=== PATIENT | female | born 1955 | race Caucasian/White ===

== ENCOUNTER 2017-11-10 15:41 | Emergency (ER) | payer BC ==
[2017-11-10 15:59] VITALS: BP 155/73
--- NOTE | 2017-11-10 16:11 | UC ---
Back Pain HPI - HPI Summary HPI Summary: C/O 3 day history of pain radiating from the left lower back into the left upper leg and groin. No rash. - History of Current Complaint Chief Complaint: UCLowerExtremity Stated Complaint: PAIN LEFT THIGH/GROIN Time Seen by Provider: 11/10/17 16:01 Hx Obtained From: Patient Hx Last Menstrual Period: 1999 ?: No Onset/Duration: Gradual Onset, Lasting Days - 3, Worse Since - onset Pain Intensity: 10 - Allergies/Home Medications Allergies/Adverse Reactions: Allergies Allergy/AdvReac Type Severity Reaction Status Date / Time environmnental Allergy Eyes Uncoded 11/10/17 16:00 Itchy/Swollen/Red/Watery Home Medications: Home Medications Hydrocodone/Acetaminophen [Hydrocodone-Acetamin 10-325 mg] 1 each PO DAILY 11/10 [History Confirmed 11/10/17] celeCOXIB CAP* [Celebrex CAP*] 100 mg PO BID 11/10/17 [History Confirmed ] PMH/Surg Hx/FS Hx/Imm Hx Respiratory History: Asthma GI/ History: Gastroesophageal Reflux - Surgical History Surgical History: Yes Surgery Procedure, Year, and Place: 1999-HYSTERECTOMY - Family History Known Family History: Positive: Hypertension - Social History Occupation: Disabled Lives: With Family Alcohol Use: Occasionally Substance Use Type: None Smoking Status (MU): Former Smoker When Did the Patient Quit Smoking/Using Tobacco: 20 YRS Review of Systems Musculoskeletal: Arthralgia Is Patient Immunocompromised?: No All Other Systems Reviewed And Are Negative: Yes Physical Exam Triage Information Reviewed: Yes Appearance: Well-Appearing, Pain Distress - moderate, Obese Vital Signs: Initial Vital Signs Temp 98.6 F 11/10/17 15:54 Pulse 66 11/10/17 15:54 Resp 18 11/10/17 15:54 BP 155/73 11/10/17 15:54 Pulse Ox 98 11/10/17 15:54 Vital Signs Reviewed: Yes Eyes: Positive: Conjunctiva Inflamed Neck exam: Normal Respiratory: Positive: Lungs clear Cardiovascular: Positive: RRR, No Murmur Musculoskeletal: Positive: ROM Limited @ - lumbar spine and left hip. Neurological: Positive: Other: - hypersensitive to pinprick in the L1,L2 and ? L3 dermatome Skin: Negative: rashes - in the dermatomal distribution. Diagnostics - Radiology No standard instances Xray Interpretation: Positive (See Comments) - DDD With bridging arthritis L1L2 , L2 L3 Radiology Interpretation Completed By: ED Physician Back Pain Course/Dx - Differential Dx/Diagnosis Differential Diagnosis/HQI/PQRI: Arthritis, Cauda Equina Syndrome, Herniated Disc, Strain Provider Diagnoses: Lumbar radiculitis. Lumbar degenerative disc disease Discharge - Sign-Out/Discharge Documenting (check all that apply): Discharge/Admit/Transfer - Discharge Plan Condition: Stable Disposition: HOME Prescriptions: Gabapentin CAP(*) [Neurontin 300 CAP(*)] 300 mg PO TID #90 cap predniSONE TAB* [Deltasone 20 MG TAB*] 20 mg PO DAILY #18 tab Patient Education Materials: Lumbar Disc Herniation (ED), Lumbar Radiculopathy (ED), Prednisone (By mouth), Gabapentin (By mouth) Referrals: Matias Ferris MD [Primary Care Provider] - Additional Instructions: GABAPENTIN: Gabapentin is an anti-seizure medication that is more often used for nerve pain. It helps to stabilize the nerve to stop the pain. Its primary side effect is sedation which will improve over time. Most people will start with only one capsule 1 to 2 hours before bed, but if your pain is more severe you may want to start with one capsule twice a day. If the pain is still an issue after another 1-2days the dose may be increased to a maximum of 1 capsule 3 times a day. Decrease the dose by one capsule a day if there is excessive sedation or it is not working. You can also decrease it to discontinue it if the pain is resolving. If you break out into a rash call your doctor to get valacyclovir for shingles. - Billing Disposition and Condition Condition: STABLE Disposition: Home
--- NOTE | 2017-11-10 17:01 | RAD ---
INDICATION: L1-L2 lumbar radiculopathy. COMPARISON: There are no prior studies available for comparison. TECHNIQUE: 5 views of the lumbar spine were obtained including lateral, oblique, AP and a coned-down lateral view of the lumbar sacral junction. FINDINGS: The vertebra are in normal alignment. No fracture is seen. There is moderate to severe degenerative disc disease at the L1-L2 and L2-L3 levels and mild to moderate degenerative disc disease at L3-L4, L4-L5 and L5-S1 levels. There is facet osteoarthritis which is most prominent at the L3-L4 L4-L5 and L5-S1 levels. IMPRESSION: DEGENERATIVE DISC DISEASE AND FACET OSTEOARTHRITIS DESCRIBED.
== END 2017-11-10 17:10 | disposition home or self-care (01) ==
LOC: UCCORT 15:41
DX: M54.16 Radiculopathy, lumbar region (principal); M51.36 Other intervertebral disc degeneration, lumbar region; Z87.891 Personal history of nicotine dependence
CPT/HCPCS: 72110; 99212; G0463

== ENCOUNTER 2017-11-20 11:37 | Emergency (ER) | payer BC ==
[2017-11-20 12:20] VITALS: BP 143/74
--- NOTE | 2017-11-20 12:43 | UC ---
Respiratory Complaint HPI - HPI Summary HPI Summary: Pt presents with c/o cough, sob, boyd pressure and generalized malaise X 2 days. Pt has albuterol inhaler and used it last night with some improvement. Pt states breathing is "more difficult" in recumbent position. Denies fever or chills, or hx of blood clots. - History of Current Complaint Chief Complaint: UCRespiratory Stated Complaint: CONGESTION Time Seen by Provider: 11/20/17 12:29 Hx Obtained From: Patient Hx Last Menstrual Period: 1999 ?: No Onset/Duration: Gradual Onset, Lasting Days, Still Present Timing: Constant Severity Initially: Mild Severity Currently: Mild Pain Intensity: 5 Character: Cough: Nonproductive Aggravating Factors: Deep Breaths, Recumbent Position Alleviating Factors: Bronchodilator, Upright Position Associated Signs And Symptoms: Positive: Dyspnea, URI Related History: Seasonal Allergies - Risk Factors Pulmonary Embolism Risk Factors: Negative Cardiac Risk Factors: Negative Pseudomonas Risk Factors: Negative Tuberculosis Risk Factors: Negative - Allergies/Home Medications Allergies/Adverse Reactions: Allergies Allergy/AdvReac Type Severity Reaction Status Date / Time environmnental Allergy Eyes Uncoded 11/10/17 16:00 Itchy/Swollen/Red/Watery PMH/Surg Hx/FS Hx/Imm Hx Previously Healthy: Yes Cardiovascular History: Cardiac Disease - Surgical History Surgical History: Yes Surgery Procedure, Year, and Place: 1999-HYSTERECTOMY - Family History Known Family History: Positive: Hypertension - Social History Occupation: Retired Lives: With Family Alcohol Use: Occasionally Substance Use Type: None Smoking Status (MU): Former Smoker Have You Smoked in the Last Year: No When Did the Patient Quit Smoking/Using Tobacco: 20 YRS Review of Systems Constitutional: Fatigue Skin: Negative Eyes: Negative ENT: Negative Respiratory: Shortness Of Breath, Cough Cardiovascular: Chest Pain Gastrointestinal: Negative Genitourinary: Negative Motor: Negative Neurovascular: Negative Musculoskeletal: Negative Neurological: Negative Psychological: Negative Is Patient Immunocompromised?: No All Other Systems Reviewed And Are Negative: Yes Physical Exam Triage Information Reviewed: Yes Appearance: Ill-Appearing, Obese Vital Signs: Initial Vital Signs Temp 97.1 F 11/20/17 12:13 Pulse 66 11/20/17 12:13 Resp 20 11/20/17 12:13 BP 143/74 11/20/17 12:13 Pulse Ox 98 11/20/17 12:13 Vital Signs Reviewed: Yes Eye Exam: Normal ENT: Positive: Nasal congestion Dental Exam: Normal Neck exam: Normal Respiratory Exam: Normal Respiratory: Positive: Normal breath sounds Cardiovascular Exam: Normal Cardiovascular: Positive: RRR Musculoskeletal Exam: Normal Neurological Exam: Normal Psychological Exam: Normal Skin Exam: Normal UC Diagnostic Evaluation - Laboratory O2 Sat by Pulse Oximetry: 98 Respiratory Course/Dx - Differential Dx/Diagnosis Differential Diagnosis/HQI/PQRI: Bronchitis, Pulmonary Embolism, Other - pneumonia Provider Diagnoses: bronchitis Discharge - Sign-Out/Discharge Documenting (check all that apply): Patient Departure - Discharge Plan Condition: Stable Disposition: HOME Prescriptions: Albuterol HFA INHALER* [Ventolin HFA Inhaler*] 2 puff INH Q4H PRN #1 mdi PRN Reason: coughing Azithromycin TAB* [Zithromax TAB (Z-MAXIMUS) 250 mg #6 tabs] 2 tab PO .TODAY, THEN 1 DAILY #1 maximus predniSONE TAB* [Deltasone 10 MG TAB*] 30 mg PO DAILY #6 tab Patient Education Materials: Acute Bronchitis (ED) Referrals: Matias Ferris MD [Primary Care Provider] - If Needed - Billing Disposition and Condition Condition: STABLE Disposition: Home
== END 2017-11-20 12:53 | disposition home or self-care (01) ==
LOC: UCCORT 11:37
DX: J40 Bronchitis, not specified as acute or chronic (principal); Z91.09 Other allergy status, other than to drugs and biological substances; Z87.891 Personal history of nicotine dependence
CPT/HCPCS: 93005; 99212; G0463

== ENCOUNTER 2018-12-12 11:37 | Emergency (ER) | payer BC, OTHER ==
[2018-12-12 12:42] VITALS: BP 147/85
--- NOTE | 2018-12-12 13:13 | UC ---
Shoulder Pain HPI - HPI Summary HPI Summary: Pt presents with sudden onset of left shoulder pain and reduced ROM. Pt states that she went swimming [place] and woke the next morning with left shoulder pain and reduced ROM. Denies injury or trauma while swimming. - History of Current Complaint Chief Complaint: UCPsych Stated Complaint: LEFT SHOULDER PAIN Time Seen by Provider: 12/12/18 12:51 Hx Obtained From: Patient Hx Last Menstrual Period: 1999 ?: No Onset/Duration: Sudden Onset, Still Present Timing: Constant Severity Initially: Mild Severity Currently: Moderate Location Of Pain: Is Discrete @ - left anterior proximal humerus, Radiates To - to left forearm Pain Intensity: 9 Character: Dull, Aching, Stiffness, Burning Aggravating Factor(s): Movement Alleviating Factor(s): Rest Associated Signs And Symptoms: Positive: Weakness Related History: Dominant Hand Right - Risk Factors Non-Orthopedic Risk Factor: Negative DVT Risk Factors: Negative Septic Arthritis Risk Factor: Negative - Allergies/Home Medications Allergies/Adverse Reactions: Allergies Allergy/AdvReac Type Severity Reaction Status Date / Time erythromycin base Allergy yeast Verified 12/12/18 12:32 infection environmnental Allergy Eyes Uncoded 12/12/18 12:31 Itchy/Swollen/Red/Watery Home Medications: Home Medications Acetaminophen [Pain Relief] 1,000 mg PO Q6H PRN 12/12/18 [History Confirmed 01/22] Trolamine Salicylate/Aloe Vera [Aspercreme 10% Cream] 35.4 gm TP SEE INSTRUCTIONS PRN 12/12/18 [History Confirmed 12/12/18] PMH/Surg Hx/FS Hx/Imm Hx Previously Healthy: Yes - Surgical History Surgical History: Yes Surgery Procedure, Year, and Place: 1999-HYSTERECTOMY - Family History Known Family History: Positive: Hypertension - Social History Occupation: Retired Lives: With Family Alcohol Use: Occasionally Substance Use Type: None Smoking Status (MU): Former Smoker Have You Smoked in the Last Year: No When Did the Patient Quit Smoking/Using Tobacco: 20 YRS Review of Systems All Other Systems Reviewed And Are Negative: Yes Constitutional: Positive: Negative Skin: Positive: Negative Eyes: Positive: Negative ENT: Positive: Negative Respiratory: Positive: Negative Cardiovascular: Positive: Negative Gastrointestinal: Positive: Negative Genitourinary: Positive: Negative Motor: Positive: Decreased ROM - left shoulder, Weakness - left shoulder Neurovascular: Positive: Negative Musculoskeletal: Positive: Arthralgia, Decreased ROM, Myalgia Neurological: Positive: Negative Psychological: Positive: Negative Is Patient Immunocompromised?: No Physical Exam Triage Information Reviewed: Yes Appearance: Pain Distress - with left arm movement Vital Signs: Initial Vital Signs Temp 98.3 F 12/12/18 12:36 Pulse 57 12/12/18 12:36 Resp 18 12/12/18 12:36 BP 147/85 12/12/18 12:36 Pulse Ox 98 12/12/18 12:36 Vital Signs Reviewed: Yes Eye Exam: Normal ENT: Positive: Hearing grossly normal Dental Exam: Normal Neck exam: Normal Respiratory Exam: Normal Musculoskeletal: Positive: Strength Limited @ - left shoulder, ROM Limited @ - left shoulder Neurological Exam: Normal Psychological Exam: Normal Skin Exam: Normal Shoulder Course/Dx - Differential Dx/Diagnosis Differential Diagnosis/HQI/PQRI: Bursitis, Sprain, Tendonitis Provider Diagnosis: Left anterior shoulder pain Discharge - Sign-Out/Discharge Documenting (check all that apply): Patient Departure All imaging exams completed and their final reports reviewed: No Studies - Discharge Plan Condition: Stable Disposition: HOME Prescriptions: Cyclobenzaprine TAB* [Flexeril 10 MG TAB*] 10 mg PO Q8H PRN #15 tab PRN Reason: Pain - Mild Patient Education Materials: Shoulder Bursitis (ED), Shoulder Pain (ED) Referrals: Luciano Donahue MD [Medical Doctor] - If Needed Matias Ferris MD [Primary Care Provider] - If Needed - Billing Disposition and Condition Condition: STABLE Disposition: Home
== END 2018-12-12 13:24 | disposition home or self-care (01) ==
LOC: UCCORT 11:37
DX: M25.512 Pain in left shoulder (principal); Z87.891 Personal history of nicotine dependence
CPT/HCPCS: 93005; 99212; G0463

== ENCOUNTER 2019-05-08 14:23 | Emergency (ER) | payer BC, OTHER ==
--- NOTE | 2019-05-08 16:06 | UC ---
FLU HPI - HPI Summary HPI Summary: 63-year-old female presenting with complaint of nasal congestion, chest congestion, and chest pressure 1 week. Denies chest pain. Also notes right ear pain. Denies cough. Denies sore throat. Denies fevers and body aches. Notes chills this morning. Denies decreased appetite and fluid intake. Patient has history of asthma and concern for pneumonia. States she has been using albuterol inhaler more often than usual and is unsure if it provides any relief. Patient has history of recurrent sinusitis. - History of Current Complaint Chief Complaint: UCGeneralIllness Stated Complaint: CONGESTION Hx Obtained From: Patient Hx Last Menstrual Period: 1999 Onset/Duration: Gradual Onset, Lasting Days Pain Intensity: 0 - Allergy/Home Medications Allergies/Adverse Reactions: Allergies Allergy/AdvReac Type Severity Reaction Status Date / Time erythromycin base Allergy yeast Verified 05/08/19 15:45 infection environmnental Allergy Eyes Uncoded 05/08/19 15:45 Itchy/Swollen/Red/Watery Home Medications: Home Medications Acetaminophen [Tylenol Extra Strength] 2 tab PO ONCE 05/08/19 [History Confirmed 05/08/19] Pantoprazole TAB * [Protonix TAB*] 20 mg PO DAILY 05/08/19 [History Confirmed ] guaiFENesin [Mucinex] 1 tab PO ONCE 05/08/19 [History Confirmed 05/08/19] PMH/Surg Hx/FS Hx/Imm Hx Respiratory History: Asthma GI/ History: Gastroesophageal Reflux - Surgical History Surgical History: Yes Surgery Procedure, Year, and Place: 1999-HYSTERECTOMY - Family History Known Family History: Positive: Hypertension - Social History Alcohol Use: Weekly Substance Use Type: None Smoking Status (MU): Former Smoker Have You Smoked in the Last Year: No When Did the Patient Quit Smoking/Using Tobacco: 20 YRS Review of Systems All Other Systems Reviewed And Are Negative: Yes Constitutional: Positive: Chills - this morning. Negative: Fever ENT: Positive: Ear Ache - right, Sinus Congestion. Negative: Sore Throat Respiratory: Positive: Shortness Of Breath, Other - wheezing/chest congestion. Negative: Cough Cardiovascular: Positive: Negative Gastrointestinal: Positive: Negative. Negative: Vomiting, Nausea Musculoskeletal: Positive: Negative Neurological: Positive: Negative Physical Exam Triage Information Reviewed: Yes Appearance: Well-Appearing, No Pain Distress, Well-Nourished Vital Signs: Initial Vital Signs Temp 98 F 05/08/19 15:47 Pulse 75 05/08/19 15:47 Resp 16 05/08/19 15:47 BP 142/89 05/08/19 15:47 Pulse Ox 98 05/08/19 15:47 Vital Signs Reviewed: Yes Eyes: Positive: Conjunctiva Clear ENT: Positive: Hearing grossly normal, Pharynx normal, Nasal congestion, TMs normal, Uvula midline. Negative: Nasal drainage, Tonsillar swelling, Tonsillar exudate, Sinus tenderness Neck exam: Normal Neck: Positive: Supple, Nontender, No Lymphadenopathy Respiratory: Positive: No respiratory distress, No accessory muscle use, Wheezing - diffuse expiratory wheezing. Negative: Crackles, Rhonchi, Stridor Cardiovascular Exam: Normal Cardiovascular: Positive: RRR, No Murmur. Negative: Tachycardia Neurological: Positive: Alert Psychological: Positive: Age Appropriate Behavior Skin Exam: Normal Diagnostics - Radiology chest Radiology Interpretation Completed By: Radiologist Summary of Radiographic Findings: FINDINGS: The heart is within normal limits in size. Mediastinal and hilar contours appear within normal limits. The lungs are hyperinflated and clear. No pleural effusion is seen. IMPRESSION: FINDINGS CONSISTENT WITH COPD, NO EVIDENCE FOR ACUTE DISEASE. Flu Course/Dx - Course Course Of Treatment: Chest x-ray revealed findings consistent with COPD, no evidence of pneumonia. Discussed this with patient and instructed to follow up with primary care provider within the next couple weeks for further evaluation. Provided patient with prednisone and albuterol inhaler for symptomatic relief. Also provided patient with Augmentin for sinusitis treatment. Instructed to follow up with PCP if symptoms persist. Patient voiced understanding and agree with treatment plan. - Differential Dx/Diagnosis Provider Diagnosis: Sinusitis, Acute bronchitis Discharge ED - Sign-Out/Discharge Documenting (check all that apply): Patient Departure All imaging exams completed and their final reports reviewed: Yes - Discharge Plan Condition: Stable Disposition: HOME Prescriptions: Albuterol HFA INHALER* [Ventolin HFA Inhaler*] 2 puff INH Q4H PRN #1 mdi PRN Reason: Sob/Wheezing Amoxicillin/Clavulanate TAB* [Augmentin TAB 875*] 875 mg PO BID #14 tab predniSONE 20 mg TAB [Deltasone 20 MG TAB*] 40 mg PO DAILY #10 tab Patient Education Materials: Sinusitis (ED), Acute Bronchitis (ED) Referrals: Malakar,Matias, MD [Primary Care Provider] - 2 Weeks Additional Instructions: Take Augmentin and prednisone as prescribed. Use your inhaler as needed for shortness of breath/wheezing. Get plenty of rest and fluids. You chest xray findings were read as consistent with COPD. It is recommended that you follow up with your primary care provider within the next couple weeks for further evaluation. Go to the emergency room with any new or worsening symptoms. - Billing Disposition and Condition Condition: STABLE Disposition: Home
[2019-05-08 17:48] VITALS: BP 142/84
== END 2019-05-08 18:06 | disposition home or self-care (01) ==
LOC: UCCORT 14:23
DX: J32.9 Chronic sinusitis, unspecified (principal); J20.9 Acute bronchitis, unspecified; J45.909 Unspecified asthma, uncomplicated; K21.9 Gastro-esophageal reflux disease without esophagitis; Z88.8 Allergy status to other drugs, medicaments and biological substances; Z91.09 Other allergy status, other than to drugs and biological substances; Z79.899 Other long term (current) drug therapy; Z87.891 Personal history of nicotine dependence
CPT/HCPCS: 71046; 99212; G0463

== ENCOUNTER 2020-07-26 06:26 | Observation (INO) ==
[~2020-07-26 06:26] MED LIST: Buffered Lidocaine 1% SYRIN 1 ml INTRADERM ONE; Famotidine IV 10 MG/ML 2 ml VIAL (20 mg) IV ONE; Lactated Ringers 1000 ml BAG 1,000 ML IV SCH; Levalbuterol 0.63MG/3ML NEB UNIT OF USE INH ONE
[2020-07-26] MEDS ORDERED: Levalbuterol 0.63MG/3ML NEB UNIT OF USE INH ONE (06:50)
[2020-07-26] MEDS ORDERED: ceFAZolin 2 GM PREMIX 2 GM/50 ML BAG ONE (06:50)
[2020-07-26] MEDS ORDERED: Famotidine IV 10 MG/ML 2 ml VIAL (20 mg) ONE (06:51)
[2020-07-26] MEDS ORDERED: Propofol 10 MG/ML 20 ML BTL ONE ×3 (06:55→10:16)
[2020-07-26] MEDS ORDERED: Ondansetron 4 mg VIAL 2 MG/ML 2 ml VIAL ONE (06:55)
[2020-07-26] MEDS ORDERED: Phenylephrine IV 10 MG/ML 1 ml VIAL ONE (06:56)
[2020-07-26] MEDS ORDERED: Lidocaine 2% PF 5 ML VIAL ONE ×3 (06:56→08:22)
[2020-07-26] MEDS ORDERED: fentaNYL 100 mcg/2 ml 50 MCG/ML VIAL ONE ×2 (06:59→07:24)
[2020-07-26] MEDS ORDERED: Midazolam 2 mg/2 ml VIAL 1 mg/ml 2 ml VIAL (2 mg) ONE ×2 (06:59→08:20)
[2020-07-26] MEDS ORDERED: Ketamine HCL 50 mg/ml 10 ml VIAL (500 MG) ONE (06:59)
[2020-07-26] MEDS ORDERED: Bupivacaine 0.5% SDV PF 30ML VIAL ONE (07:02)
[2020-07-26] MEDS ORDERED: Ropivacaine 5 MG/ML 20 ML VIAL 0.5% (100 MG) ONE (07:13)
[2020-07-26] MEDS ORDERED: ROPIVACAINE 5 MG/ML 30 ML BTL (0.5%) ONE (07:24)
[2020-07-26] MEDS ORDERED: Midazolam 5 mg/5 ml VIAL 1 mg/ml 5 ml VIAL (5 mg) ONE (07:24)
[2020-07-26] MEDS ORDERED: fentaNYL 100 mcg/2 ml 50 MCG/ML VIAL IV PRN (08:28)
[2020-07-26] MEDS ORDERED: Ondansetron 4 mg VIAL 2 MG/ML 2 ml VIAL IV PRN ×2 (08:28→09:09)
[2020-07-26] MEDS ORDERED: Naloxone 0.4 mg VIAL 0.4 mg/ml 1 ml VIAL IV PRN (08:28)
[2020-07-26] MEDS ORDERED: HYDROmorphone 1 MG/1 ML SYRINGE IV PRN (08:28)
[2020-07-26] MEDS ORDERED: EPHEDrine (Pressors) 50 MG/ML VIAL ONE ×2 (08:56→10:06)
[2020-07-26] MEDS ORDERED: Phenylephrine 40 mcg/mL 10mL (400mcg) SYRINGE ONE (08:56)
[2020-07-26] MEDS ORDERED: diPHENhydraMINE 25 mg TAB PO PRN (09:09)
[2020-07-26] MEDS ORDERED: Magnesium Hydroxide LIQ 30 ML UDC PO PRN (09:09)
[2020-07-26] MEDS ORDERED: Ondansetron ODT 4 mg TAB 4 MG TAB PO PRN (09:09)
[2020-07-26] MEDS ORDERED: Lactulose 30 ml UDC PO PRN (09:09)
[2020-07-26] MEDS ORDERED: diPHENhydraMINE IV 50 MG/ML 1 ml VIAL (BENADRYL) IV PRN (09:09)
[2020-07-26] MEDS ORDERED: Lactated Ringers 1000 ml BAG 1,000 ML IV SCH (10:00)
[2020-07-26] MEDS ORDERED: Albuterol HFA INHALER 8 gm MDI INH PRN (14:08)
[2020-07-26] MEDS: oxyCODONE/Acetamin 5/325 mg TAB PO PRN ×3 (14:46→22:41)
[2020-07-26] MEDS: Morphine 2 MG/ML SYRINGE IV PRN (15:34)
[2020-07-26] MEDS ORDERED: Morphine 2 MG/ML SYRINGE IV ONE (16:42)
[2020-07-26] MEDS ORDERED: Morphine ER 30 mg TAB ** extended release ONE (16:44)
[2020-07-26] MEDS ORDERED: Morphine 2 MG/ML SYRINGE ONE (16:45)
[2020-07-26] MEDS: Morphine ER 30 mg TAB ** extended release PO SCH (16:46)
[2020-07-26] MEDS: ceFAZolin 1 GM ADVAN 1 GM in NS 0.9% 50 ML 50 ML IVPB SCH (16:55)
[2020-07-26] MEDS: Magnesium Hydroxide LIQ 30 ML UDC PO SCH (20:18)
[2020-07-27] MEDS: ceFAZolin 1 GM ADVAN 1 GM in NS 0.9% 50 ML 50 ML IVPB SCH ×2 (01:02→08:32)
[2020-07-27] MEDS: Morphine 2 MG/ML SYRINGE IV PRN ×2 (02:40→06:36)
[2020-07-27] MEDS: Morphine ER 30 mg TAB ** extended release PO SCH ×2 (04:49→16:24)
[2020-07-27 05:55] LABS: Hematocrit 34 % (35-47); Hemoglobin 11.5 g/dL (12.0-16.0); Mean Platelet Volume 8.6 fL (7.4-10.4); Platelet Count 214 10^3/uL (150-450)
[2020-07-27 06:19] LABS: BUN/Creatinine Ratio 30.9 (8-20); Calcium 8.9 mg/dL (8.6-10.3); EGFR African American 134.2 (>60); EGFR Non-African American 110.9 (>60)
[2020-07-27] MEDS: Magnesium Hydroxide LIQ 30 ML UDC PO SCH (08:30)
[2020-07-27] MEDS ORDERED: Vitamin THERAPEUTIC TAB PO SCH (09:00)
[2020-07-27] MEDS: oxyCODONE/Acetamin 5/325 mg TAB PO PRN (11:21)
[2020-07-27 11:33] VITALS: BP 125/57
== END 2020-07-27 16:30 | disposition home or self-care (01) ==
LOC: OR 06:26 → SSU 06:26 → EDSTATUS 07:30
PROVIDERS: ADMIT Orthopaedic Surgery Adult Reconstructive Orthopaedic Surgery; ATTEND Orthopaedic Surgery Adult Reconstructive Orthopaedic Surgery

== ENCOUNTER 2021-07-25 12:17 | Observation (INO) ==
[~2021-07-25 12:17] MED LIST changes: -Famotidine IV 10 MG/ML 2 ml VIAL (20 mg) IV ONE; -Levalbuterol 0.63MG/3ML NEB UNIT OF USE INH ONE
[2021-07-25] MEDS ORDERED: ceFAZolin 2 GM in NS PREMIX 2 GM/100 ML BAG IVPB ONE (13:08)
[2021-07-25] MEDS ORDERED: Lidocaine 2% PF 5 ML VIAL ONE ×2 (13:13→13:58)
[2021-07-25] MEDS ORDERED: Ketamine HCL 50 mg/ml 10 ml VIAL (500 MG) ONE (13:14)
[2021-07-25] MEDS ORDERED: Midazolam 10 mg/10 ml VIAL 1 mg/ml 10 ml VIAL (10 mg) ONE (13:58)
[2021-07-25] MEDS ORDERED: fentaNYL 100 mcg/2 ml 50 MCG/ML VIAL ONE (13:58)
[2021-07-25] MEDS ORDERED: ROPIVACAINE 5 MG/ML 30 ML BTL (0.5%) ONE (13:59)
[2021-07-25] MEDS ORDERED: Propofol 10 mg/ml 100 ML BTL 100 ML ONE (14:39)
[2021-07-25] MEDS ORDERED: Bupivacaine 0.5% SDV PF 30ML VIAL ONE (14:39)
[2021-07-25] MEDS ORDERED: Ropivacaine 5 MG/ML 20 ML VIAL 0.5% (100 MG) ONE ×2 (15:25→15:28)
[2021-07-25] MEDS ORDERED: ceFAZolin 1 GM ADVAN 1 GM ADDV.VIAL IVPB ONE (15:41)
[2021-07-25] MEDS ORDERED: Sterile Water for Inj 10 ML ONE (15:46)
[2021-07-25] MEDS ORDERED: Acetaminophen IV 1 GM/100ML 100 ML IV ONE (15:49)
[2021-07-25] MEDS ORDERED: Ondansetron 4 mg VIAL 2 MG/ML 2 ml VIAL ONE (15:49)
[2021-07-25] MEDS ORDERED: Phenylephrine 40 mcg/mL 10mL (400mcg) SYRINGE ONE (15:53)
[2021-07-25] MEDS ORDERED: Glycopyrrolate IV 0.2 MG/ML 1 ML VIAL ONE (16:14)
[2021-07-25] MEDS ORDERED: diPHENhydraMINE IV 50 MG/ML 1 ml VIAL (BENADRYL) IV PRN (16:33)
[2021-07-25] MEDS ORDERED: Magnesium Hydroxide LIQ 30 ML UDC PO PRN (16:33)
[2021-07-25] MEDS ORDERED: Morphine 4 MG/ML VIAL (1 ml) IV PRN (16:33)
[2021-07-25] MEDS ORDERED: diPHENhydraMINE 25 mg TAB PO PRN (16:33)
[2021-07-25] MEDS ORDERED: Ondansetron ODT 4 mg TAB 4 MG TAB PO PRN (16:33)
[2021-07-25] MEDS ORDERED: Ondansetron 4 mg VIAL 2 MG/ML 2 ml VIAL IV PRN ×2 (16:33→18:58)
[2021-07-25] MEDS ORDERED: Lactulose 30 ml UDC PO PRN (16:33)
[2021-07-25] MEDS ORDERED: ceFAZolin 1 GM ADVAN 1 GM in NS 0.9% 50 ML 50 ML IVPB SCH (17:00)
[2021-07-25] MEDS ORDERED: EPHEDrine (Pressors) 50 MG/ML VIAL ONE (17:36)
[2021-07-25] MEDS ORDERED: Naloxone 0.4 mg VIAL 0.4 mg/ml 1 ml VIAL IV PRN (18:58)
[2021-07-25] MEDS ORDERED: fentaNYL 100 mcg/2 ml 50 MCG/ML VIAL IV PRN (18:58)
[2021-07-25] MEDS: Magnesium Hydroxide LIQ 30 ML UDC PO SCH (20:46)
[2021-07-25] MEDS: Lactated Ringers 1000 ml BAG 1,000 ML IV SCH (20:47)
[2021-07-26] MEDS: ceFAZolin VIAL 1 GM in NS 0.9% 50 ML 50 ML IVPB SCH ×3 (00:08→14:26)
[2021-07-26] MEDS: Lactated Ringers 1000 ml BAG 1,000 ML IV SCH (06:16)
[2021-07-26 06:25] LABS: Hematocrit 34 % (35-47); Hemoglobin 11.6 g/dL (12.0-16.0); Mean Platelet Volume 7.7 fL (7.4-10.4); Platelet Count 235 10^3/uL (150-450)
[2021-07-26 06:58] LABS: Calcium 8.9 mg/dL (8.6-10.3); eGFR CKD-EPI 98.9 (>60)
[2021-07-26] MEDS ORDERED: Vitamin THERAPEUTIC TAB PO SCH (09:00)
[2021-07-26] MEDS: Magnesium Hydroxide LIQ 30 ML UDC PO SCH (09:03)
[2021-07-26] MEDS ORDERED: Morphine ER 15 mg TAB ** extended release PO SCH (09:30)
[2021-07-26 10:54] VITALS: BP 134/74
[2021-07-26 11:24] LABS: Urine Osmo 884 mOsm/kg (150-1150)
== END 2021-07-26 15:40 | disposition home or self-care (01) ==
LOC: SSU 12:17 → OR 12:17
PROVIDERS: ADMIT Orthopaedic Surgery Adult Reconstructive Orthopaedic Surgery; ATTEND Orthopaedic Surgery Adult Reconstructive Orthopaedic Surgery